=== PATIENT | male | born 1950 | race Caucasian/White ===

== ENCOUNTER 2023-01-24 07:18 | Day surgery (SDC) | payer OTHER ==
[~2023-01-24] VITALS: Ht 177.8 cm; Wt 149.7 kg
[2023-01-24 08:00] VITALS: O2SAT 97
[2023-01-24] MEDS ORDERED: SIMETHICONE 40 MG/0.6 ML ML ONE (08:24)
[2023-01-24] MEDS ORDERED: MIDAZOLAM HCL 5 MG/5 ML VIAL ONE (08:24)
[2023-01-24] MEDS ORDERED: MEPERIDINE 100 MG INJ. 100 MG/ML VIAL ONE (08:24)
[2023-01-24 12:36] VITALS: BP_SYST 125; PULSE 58; RESP 21; TEMP 98
== END 2023-01-24 10:06 | disposition home or self-care (01) ==
LOC: SDS 07:18 → SMU 07:19 → SDS 10:06
PROVIDERS: ATTEND Internal Medicine Gastroenterology
DX: Z12.11 Encounter for screening for malignant neoplasm of colon (principal); D12.2 Benign neoplasm of ascending colon; K57.30 Diverticulosis of large intestine without perforation or abscess without bleeding; K64.9 Unspecified hemorrhoids; I10 Essential (primary) hypertension; E78.5 Hyperlipidemia, unspecified; Z80.0 Family history of malignant neoplasm of digestive organs; Z86.010 Personal history of colon polyps; M19.90 Unspecified osteoarthritis, unspecified site; Z98.890 Other specified postprocedural states; Z88.0 Allergy status to penicillin; Z79.899 Other long term (current) drug therapy
CPT/HCPCS: 45380; 45385; 99152; 88305; 99153; G0378; J2250; J2175; 45382